=== PATIENT | female | born 1990 | race Caucasian/White ===

== ENCOUNTER → 2016-10-11 | Outpatient (CLI) | payer BC ==
[~2016-10-11] MED LIST: HYDR-4246 PO
--- NOTE | 2016-10-11 13:46 | DI ---
Indication: ITS.REASON: N92.0 MENORRHAGIA W/ REGULAR CYCLE PROCEDURE: US TRANSVAGINAL (NON-OB): Encounter: Initial Comparison: CT abdomen/pelvis dated August 15, 2016 FINDINGS: Transvaginal and transabdominal pelvic imaging was performed. The uterus measures 8 x 3.8 x 4.7 cm. The parenchyma is homogeneous without fibroids. The endometrial stripe measures 8 mm in thickness. There is no evidence of focal endometrial mass. Nabothian cysts in the cervix measuring up to 1.6 cm in diameter. Both ovaries are identified. The right ovary measures 2.6 x 1.6 x 2.3 cm. The left ovary measures 3.5 x 2.8 x 1.8 cm. Simple appearing cysts in the left ovary. These measure 2 and 1.2 cm respectively. There are no abnormal adnexal masses detected. Small amount of free fluid. IMPRESSION: Unremarkable pelvic sonogram. No acute findings. .
== END ==
LOC: IMA 12:43
PROVIDERS: ATTEND Nurse Practitioner Family
DX: N92.0 Excessive and frequent menstruation with regular cycle (principal); N83.292 Other ovarian cyst, left side